=== PATIENT | female | born 1990 | race Caucasian/White ===

== ENCOUNTER 2017-08-20 16:25 | Emergency (ER) | payer OTHER ==
--- NOTE | 2017-08-20 16:46 | PDOC ---
Rapid Medical Evaluation Time Seen by Provider: 08/20/17 16:45 Medical Evaluation: Allergies Allergy/AdvReac Type Severity Reaction Status Date / Time No Known Allergies Allergy Verified 08/20/17 16:45 08/20/17 16:45 pt states IDDM and 7 weeks sent by for admission for uncontrolled blood sugar. Pt states her blood sugar has been over 400.
[2017-08-20 16:48] VITALS: BP 137/89; PULSE 109; TEMP 98.6; BMI 28.0
[2017-08-20 17:37] LABS: HEMATOCRIT 36.8 % (32.4-45.2); HEMOGLOBIN 12.7 GM/dL (10.7-15.3); MCH 29.9 pg (25.7-33.7); MCHC 34.5 g/dl (32.0-36.0); MEAN CELL VOLUME 86.7 fl (80-96); MEAN PLT VOLUME 9.5 fl (7.5-11.1); PLATELET COUNT 301 K/MM3 (134-434); RBC 4.24 M/mm3 (3.60-5.2); RDW 12.5 % (11.6-15.6); WHITE BLOOD COUNT 9.9 K/mm3 (4.0-10.0)
[2017-08-20 17:53] LABS: ARTERIAL BLD GAS O2 SATURATION 98.5 % (90-98.9); ARTERIAL BLOOD GAS BASE EXCESS -1.5 meq/l (-2-2); ARTERIAL BLOOD GAS PCO2 31.3 mmHg (35-45); ARTERIAL BLOOD GAS pH 7.45 (7.35-7.45); CARBOXYHEMOGLOBIN 1.3 gm% (0.5-2.0)
[2017-08-20 18:04] LABS: ALLENS TEST POSITIVE
[2017-08-20 18:17] LABS: ANION GAP 12 (8-16); BLOOD UREA NITROGEN 11 mg/dL (7-18); CALCIUM 9.2 mg/dL (8.5-10.1); CHLORIDE 102 mmol/L (98-107); CO2 23 mmol/L (21-32); CREATININE 0.6 mg/dL (0.55-1.02); GLUCOSE,RANDOM 271 mg/dL (74-106); SGOT/AST 24 U/L (15-37); SGPT/ALT 70 U/L (12-78); SODIUM 137 mmol/L (136-145)
[2017-08-20 18:19] LABS: ALK PHOS 80 U/L (45-117); BILIRUBIN,TOTAL 0.4 mg/dL (0.2-1.0); TOT PROT 7.9 g/dl (6.4-8.2)
[2017-08-20 20:20] LABS: URINE APPEARANCE CLEAR; URINE BILIRUBIN NEGATIVE (NEGATIVE); URINE BLOOD 3+ (NEGATIVE); URINE COLOR YELLOW; URINE GLUCOSE (UA) 3+ (NEGATIVE); URINE KETONE TRACE (NEGATIVE); URINE LEUK ESTERASE NEGATIVE (NEGATIVE); URINE NITRITE NEGATIVE (NEGATIVE); URINE PROTEIN NEGATIVE (NEGATIVE); URINE UROBILINOGEN NEGATIVE mg/dL (0.2-1.0)
--- NOTE | 2017-08-20 21:03 | PDOC ---
History of Present Illness - General History Source: Patient Exam Limitations: No Limitations - History of Present Illness Initial Comments: 08/20/17 21:21 The patient is a 26 year old female who is 7 weeks and a significant PMH of type 2 diabetes, HTN, and 2 spontaneous abortions sent in by Dr. Estrada who presents to the emergency department for evaluation of high blood sugar. The patient reports her blood sugar was over 400 recently and has been high for a few months, and was told by Dr. Estrada to present to the ED for evaluation. The patient reports she stopped taking her HTN and diabetes medications on 08/04/2017. She reports seeing Dr. Estrada yesterday and receiving new medications which she has been compliant with. The patient also notes a mild headache and dizziness beginning yesterday and a pinkish vaginal discharge beginning today. The patient denies chest pain, shortness of breath. Denies fever, chills, nausea, vomit, diarrhea and constipation. Denies dysuria, frequency, urgency. Allergies: NKA Past surgical history: None reported. Social history: No reported cigarette, alcohol, or drug use. PCP: Dr. Pollock Endocrinology: Dr. Estrada <Diony Pickett - Last Filed: 08/20/17 21:21> - General History Source: Patient <ZhaneArnulfo shine - Last Filed: 08/20/17 23:54> - General Chief Complaint: Blood Sugar Problem Stated Complaint: BLOOD SUGAR PROBLEM/7 WKS Time Seen by Provider: 08/20/17 16:45 Past History <Diony Pickett - Last Filed: 08/20/17 21:21> - Past Medical History COPD: No Diabetes: Yes - Suicide/Smoking/Psychosocial Hx Smoking History: Never smoked <Arnulfo Cartwright - Last Filed: 08/20/17 23:54> - Past Medical History Allergies/Adverse Reactions: Allergies Allergy/AdvReac Type Severity Reaction Status Date / Time No Known Allergies Allergy Verified 08/20/17 16:45 Review of Systems - Review of Systems Able to Perform ROS?: Yes Comments:: 08/20/17 21:21 CONSTITUTIONAL: Absent: fever, chills, diaphoresis, generalized weakness, malaise, loss of appetite HEENT: Absent: rhinorrhea, nasal congestion, throat pain, throat swelling, difficulty swallowing, mouth swelling, ear pain, eye pain, visual Changes CARDIOVASCULAR: Absent: chest pain, syncope, palpitations, irregular heart rate, lightheadedness , peripheral edema RESPIRATORY: Absent: cough, shortness of breath, dyspnea with exertion, orthopnea, wheezing, stridor, hemoptysis GASTROINTESTINAL: Absent: abdominal pain, abdominal distension, nausea, vomiting, diarrhea, constipation, melena, hematochezia GENITOURINARY: (+) [place] vaginal discharge. Absent: dysuria, frequency, urgency, hesitancy, flank pain, genital pain MUSCULOSKELETAL: Absent: myalgia, arthralgia, joint swelling SKIN: Absent: rash, itching, pallor HEMATOLOGIC/IMMUNOLOGIC: Absent: easy bleeding, easy bruising, lymphadenopathy, frequent infections ENDOCRINE: (+) High blood sugar. Absent: unexplained weight gain, unexplained weight loss, heat intolerance, cold intolerance NEUROLOGIC: (+) Mild headache. (+) Dizziness. Absent: focal weakness or paresthesias, unsteady gait, seizure, mental status changes, bladder or bowel incontinence PSYCHIATRIC: Absent: anxiety, depression, suicidal or homicidal ideation, hallucinations. <Diony Pickett - Last Filed: 08/20/17 21:21> *Physical Exam - Vital Signs Last Vital Signs Temp Pulse Resp BP Pulse Ox 98.6 F 109 H 19 137/89 98 08/20/17 16:45 08/20/17 16:45 08/20/17 16:45 08/20/17 16:45 08/20/17 16:45 - Physical Exam Comments: 08/20/17 21:21 GENERAL: Well developed, well nourished. Awake and alert. No acute distress. HEENT: Normocephalic, atraumatic. PERRLA, EOMI. No conjunctival pallor. Sclera are non- icteric. Moist mucous membranes. Oropharynx is clear. NECK: Supple. Full ROM. No JVD. Carotid pulses 2+ and symmetric, without bruits. No thyromegaly. No lymphadenopathy. CARDIOVASCULAR: Regular rate and rhythm. No murmurs, rubs, or gallops. Distal pulses are 2+ and symmetric. PULMONARY: No evidence of respiratory distress. Lungs clear to auscultation bilaterally. No wheezing, rales or rhonchi. ABDOMINAL: Soft. Non-tender. Non-distended. No rebound or guarding. No organomegaly. Normoactive bowel sounds. MUSCULOSKELETAL Normal range of motion at all joints. No bony deformities or tenderness. No CVA tenderness. EXTREMITIES: No cyanosis. No clubbing. No edema. No calf tenderness. SKIN: Warm and dry. Normal capillary refill. No rashes. No jaundice. NEUROLOGICAL: Alert, awake, appropriate. Cranial nerves 2-12 intact. No deficits to light touch and temperature in face, upper extremities and lower extremities. No motor deficits in the in face, upper extremities and lower extremities. Normoreflexic in the upper and lower extremities. Normal speech. Toes are downgoing bilaterally. Gait is normal without ataxia. PSYCHIATRIC: Cooperative. Good eye contact. Appropriate mood and affect. <Diony Pickett - Last Filed: 08/20/17 21:21> - Vital Signs Last Vital Signs Temp Pulse Resp BP Pulse Ox 98.6 F 109 H 19 137/89 98 08/20/17 16:45 08/20/17 16:45 08/20/17 16:45 08/20/17 16:45 08/20/17 16:45 <Arnulfo Cartwright - Last Filed: 08/20/17 23:54> ED Treatment Course - LABORATORY CBC & Chemistry Diagram: 08/20/17 17:25 08/20/17 17:25 - ADDITIONAL ORDERS Additional order review: Laboratory Results 08/20/17 08/20/17 08/20/17 20:40 17:30 17:25 Anticoagulation Therapy No Result Required. Puncture Site Right radial ABG pH 7.45 ABG pCO2 at Pt Temp 31.3 L ABG pO2 at Pt Temp 105.0 H ABG HCO3 21.3 L ABG O2 Sat (Measured) 98.5 ABG O2 Content 16.9 ABG Base Excess -1.5 Bar Test Positive Carboxyhemoglobin 1.3 Methemoglobin 1.1 O2 Delivery Device No Result Required. Oxygen Flow Rate Room air Vent Mode No Result Required. Vent Rate No Result Required. Mechanical Rate No Result Required. Pressure Support Vent No Result Required. Sodium Potassium Chloride Carbon Dioxide Anion Gap BUN Creatinine Creat Clearance w eGFR Random Glucose Calcium Total Bilirubin AST ALT Alkaline Phosphatase Total Protein Albumin Beta HCG, Quant 1372.2 Urine Color Yellow Urine Appearance Clear Urine pH 5.0 Ur Specific Archer 1.035 Urine Protein Negative Urine Glucose (UA) 3+ H Urine Ketones Trace H Urine Blood 3+ H Urine Nitrite Negative Urine Bilirubin Negative Urine Urobilinogen Negative Ur Leukocyte Esterase Negative 08/20/17 17:25 Anticoagulation Therapy Puncture Site ABG pH ABG pCO2 at Pt Temp ABG pO2 at Pt Temp ABG HCO3 ABG O2 Sat (Measured) ABG O2 Content ABG Base Excess Bar Test Carboxyhemoglobin Methemoglobin O2 Delivery Device Oxygen Flow Rate Vent Mode Vent Rate Mechanical Rate Pressure Support Vent Sodium 137 Potassium 4.0 Chloride 102 Carbon Dioxide 23 Anion Gap 12 BUN 11 Creatinine 0.6 Creat Clearance w eGFR > 60 Random Glucose 271 H Calcium 9.2 Total Bilirubin 0.4 AST 24 ALT 70 Alkaline Phosphatase 80 Total Protein 7.9 Albumin 4.0 Beta HCG, Quant Urine Color Urine Appearance Urine pH Ur Specific Archer Urine Protein Urine Glucose (UA) Urine Ketones Urine Blood Urine Nitrite Urine Bilirubin Urine Urobilinogen Ur Leukocyte Esterase 08/20/17 17:25 RBC 4.24 MCV 86.7 MCHC 34.5 RDW 12.5 MPV 9.5 <Diony Pickett - Last Filed: 08/20/17 21:21> - LABORATORY CBC & Chemistry Diagram: 08/20/17 17:25 08/20/17 17:25 - ADDITIONAL ORDERS Additional order review: Laboratory Results 08/20/17 08/20/17 08/20/17 20:40 17:30 17:25 Anticoagulation Therapy No Result Required. Puncture Site Right radial ABG pH 7.45 ABG pCO2 at Pt Temp 31.3 L ABG pO2 at Pt Temp 105.0 H ABG HCO3 21.3 L ABG O2 Sat (Measured) 98.5 ABG O2 Content 16.9 ABG Base Excess -1.5 Bar Test Positive Carboxyhemoglobin 1.3 Methemoglobin 1.1 O2 Delivery Device No Result Required. Oxygen Flow Rate Room air Vent Mode No Result Required. Vent Rate No Result Required. Mechanical Rate No Result Required. Pressure Support Vent No Result Required. Sodium Potassium Chloride Carbon Dioxide Anion Gap BUN Creatinine Creat Clearance w eGFR Random Glucose Calcium Total Bilirubin AST ALT Alkaline Phosphatase Total Protein Albumin Beta HCG, Quant 1372.2 Urine Color Yellow Urine Appearance Clear Urine pH 5.0 Ur Specific Archer 1.035 Urine Protein Negative Urine Glucose (UA) 3+ H Urine Ketones Trace H Urine Blood 3+ H Urine Nitrite Negative Urine Bilirubin Negative Urine Urobilinogen Negative Ur Leukocyte Esterase Negative 08/20/17 17:25 Anticoagulation Therapy Puncture Site ABG pH ABG pCO2 at Pt Temp ABG pO2 at Pt Temp ABG HCO3 ABG O2 Sat (Measured) ABG O2 Content ABG Base Excess Bar Test Carboxyhemoglobin Methemoglobin O2 Delivery Device Oxygen Flow Rate Vent Mode Vent Rate Mechanical Rate Pressure Support Vent Sodium 137 Potassium 4.0 Chloride 102 Carbon Dioxide 23 Anion Gap 12 BUN 11 Creatinine 0.6 Creat Clearance w eGFR > 60 Random Glucose 271 H Calcium 9.2 Total Bilirubin 0.4 AST 24 ALT 70 Alkaline Phosphatase 80 Total Protein 7.9 Albumin 4.0 Beta HCG, Quant Urine Color Urine Appearance Urine pH Ur Specific Archer Urine Protein Urine Glucose (UA) Urine Ketones Urine Blood Urine Nitrite Urine Bilirubin Urine Urobilinogen Ur Leukocyte Esterase 08/20/17 17:25 RBC 4.24 MCV 86.7 MCHC 34.5 RDW 12.5 MPV 9.5 <Arnulfo Cartwright - Last Filed: 08/20/17 23:54> Medical Decision Making - Medical Decision Making 08/20/17 23:47 Dr. Cartwright: The scribe's documentation has been prepared under my direction and personally reviewed by me in its entirery. I confirm that the note above accurately reflects all work, treatment, procedures, and medical decision making performed by me. Pt found to have an approximately 5 weeks 1 day gestation. No yolk sac or pole. Pt advised to follow up with Dr. Wadsworth to have bHCG repeated as well as her US in the next two days. <Arnulfo Cartwright - Last Filed: 08/20/17 23:54> *DC/Admit/Observation/Transfer - Attestations Scribe Attestion: 08/20/17 21:21 Documentation prepared by Diony Pickett, acting as medical dosimetrist for Arnulfo Cartwright DO. <Diony Pickett - Last Filed: 08/20/17 21:21> - Discharge Dispostion Admit: No <Arnulfo Cartwright - Last Filed: 08/20/17 23:54> Diagnosis at time of Disposition: Diabetes Qualifiers: Diabetes mellitus type: type 2 - Discharge Dispostion Disposition: HOME Condition at time of disposition: Stable - Referrals Referrals: Radha Nina MD [Primary Care Provider] - Bhaskar Gibson MD [Staff Physician] - - Patient Instructions Printed Discharge Instructions: Type 2 Diabetes, DI for Abdominal Pain -- Early Additional Instructions: Please follow up with your Animal Anatomist for repeat of hormone and Ultrasound. Keep sugars control as well as possible. Follow up with you nursery worker as well. Return if any problems. - Post Discharge Activity
[2017-08-20] MEDS ORDERED: SODIUM CHLORIDE 1,000 ML IV STA (21:10)
[2017-08-20 21:48] LABS: EPI CELLS RARE /HPF (FEW); URINE HYALINE CAST 2 /lpf; URINE MUCUS FEW
== END 2017-08-21 00:05 | disposition home or self-care (01) ==
LOC: JER 16:25
PROC: 3E0337Z Introduction of Electrolytic and Water Balance Substance into Peripheral Vein, Percutaneous Approach (ICD-10-PCS; principal; 2017-08-20)
DX: O24.111 Pre-existing type 2 diabetes mellitus, in pregnancy, first trimester (principal); E11.9 Type 2 diabetes mellitus without complications; Z79.84 Long term (current) use of oral hypoglycemic drugs; O10.011 Pre-existing essential hypertension complicating pregnancy, first trimester; Z3A.01 Less than 8 weeks gestation of pregnancy
CPT/HCPCS: 36415; 36600; 76817-TC; 80053; 81003; 81015; 82375; 82803; 83050; 84702; 85027; 99281-25

== ENCOUNTER 2017-09-08 04:13 | Day surgery (SDC) | payer OTHER ==
[2017-09-07 10:03] VITALS: BMI 28.7
[2017-09-08] MEDS ORDERED: PROPOFOL 20 ML ONE ×3 (10:22→10:40)
[2017-09-08] MEDS ORDERED: MIDAZOLAM HCL 2 MG/2 ML SINGLE DOSE VIAL ONE ×2 (10:22→10:40)
--- NOTE | 2017-09-08 10:37 | HP ---
Past Medical History - Primary Care Physician PCP:: Bhaskar Gibson - Admission Chief Complaint: vaginal bleeding, incomplete History of Present Illness: 26 yo f g 3 p0 with spontaneous , has vaginal bleeding ,sono shows thicken irregular EM , with retained POC admitted for D&C, rba discussed History Source: Patient Limitations to Obtaining History: No Limitations - Past Medical History Cardiovascular: Yes: HTN ...Induced : 2 Endocrine: Yes: Diabetes Mellitus (on insulin pump) - Smoking History Smoking history: Never smoked - Alcohol/Substance Use Hx Alcohol Use: No Home Medications - Allergies Allergies/Adverse Reactions: Allergies Allergy/AdvReac Type Severity Reaction Status Date / Time No Known Allergies Allergy Verified 09/08/17 09:57 - Home Medications Home Medications: Ambulatory Orders Cider Vinegar [Apple Cider Vinegar] 500 mg PO DAILY 09/07/17 Ginkgo Biloba 120 mg PO DAILY 09/07/17 Ibuprofen [Motrin -] 400 mg PO TID 09/07/17 Insulin Pump Controller [Snap Insulin Pump Controller] 1 each MC DAILY 09/07/17 Labetalol HCl [Normodyne -] 200 mg PO BID 09/07/17 Mv-Mn/Folic AC/Alip Acid/Coq10 [Diabetic Vitamin Capsule] 1 each PO DAILY Review of Systems - Review of Systems Constitutional: reports: Weakness Eyes: reports: No Symptoms HENT: reports: No Symptoms Neck: reports: No Symptoms Cardiovascular: reports: No Symptoms Respiratory: reports: No Symptoms Gastrointestinal: reports: No Symptoms Genitourinary: reports: Vaginal Bleeding Musculoskeletal: reports: No Symptoms Integumentary: reports: No Symptoms Neurological: reports: No Symptoms Endocrine: reports: No Symptoms Hematology/Lymphatic: reports: No Symptoms Psychiatric: reports: No Symptoms Physical Exam-CARBON ACCOUNTANT Vital Signs: Vital Signs Temperature 99.0 F 09/08/17 09:56 Pulse Rate 100 H 09/08/17 09:56 Respiratory Rate 20 09/08/17 09:56 Blood Pressure 132/84 09/08/17 09:56 O2 Sat by Pulse Oximetry (%) 98 09/08/17 09:50 Constitutional: Yes: Well Nourished, No Distress, Calm Eyes: Yes: WNL, Conjunctiva Clear, EOM Intact HENT: Yes: WNL, Atraumatic, Normocephalic Neck: Yes: WNL, Supple, Trachea Midline Cardiovascular: Yes: WNL, Regular Rate and Rhythm Respiratory: Yes: WNL, Regular, CTA Bilaterally Gastrointestinal: Yes: WNL ...Rectal Exam: Yes: WNL Renal/: Yes: WNL Pelvis: Yes: WNL External Genitalia: Yes: Normal Vaginal Exam: Yes: Bleeding Cervix: Yes: Other (bleeding from os , os closed) Uterus: Yes: Normal (tender), Soft Adnexa: Not Palpable: Left, Right Breast(s): Yes: WNL Musculoskeletal: Yes: WNL Extremities: Yes: WNL Edema: No Integumentary: Yes: WNL Neurological: Yes: WNL, Alert, Oriented ...Motor Strength: WNL Psychiatric: Yes: WNL, Alert, Oriented Problem List - Problem (1) Incomplete Code(s): O03.4 - INCOMPLETE SPONTANEOUS WITHOUT COMPLICATION Assessment/Plan suction D&C , rba discussed
[2017-09-08] MEDS ORDERED: KETOROLAC TROMETHAMINE 30 MG/1 ML VIAL ONE (10:42)
[2017-09-08] MEDS ORDERED: ceFAZolin SODIUM 1 GM VIAL IVPB ONE (10:47)
[2017-09-08] MEDS ORDERED: ceFAZolin SODIUM 1 GM VIAL ONE (10:49)
[2017-09-08] MEDS ORDERED: ONDANSETRON 4 MG/2 ML VIAL IVPUSH PRN ×2 (11:04→11:27)
[2017-09-08] MEDS ORDERED: oxyCODONE HCL 5 MG TABLET PO PRN ×2 (11:04→11:27)
[2017-09-08] MEDS ORDERED: SODIUM CHLORIDE 1,000 ML IV SCH (11:15)
[2017-09-08] MEDS ORDERED: IBUPROFEN 800 MG/8 ML IJ IVPB PRN (11:27)
[2017-09-08] MEDS ORDERED: IBUPROFEN 600 MG TABLET (FP) PO PRN (11:27)
[2017-09-08] MEDS ORDERED: ELECTROLYTE-148 SOLN 1,000 ML IV SCH (11:30)
--- NOTE | 2017-09-08 13:25 | EKG ---
Test Reason : Blood Pressure : / mmHG Vent. Rate : 099 BPM Atrial Rate : 099 BPM P-R Int : 144 ms QRS Dur : 080 ms QT Int : 358 ms P-R-T Axes : 021 074 030 degrees QTc Int : 459 ms NORMAL SINUS RHYTHM NORMAL ECG NO PREVIOUS ECGS AVAILABLE Confirmed by Colin Hodge ([id number]) on 09/08/2017 1:25:19 PM Referred By: Bhaskar Gibson Confirmed By:Colin Hodge
--- NOTE | 2017-09-08 13:45 | OP ---
DATE OF OPERATION: 09/08/2017 PREOPERATIVE DIAGNOSIS: Incomplete . POSTOPERATIVE DIAGNOSIS: Incomplete . PROCEDURE: Suction curettage. SURGEON: Bhaskar Gibson MD ANESTHESIA: General. ANESTHESIOLOGIST: Esperanza Crespo MD ESTIMATED BLOOD LOSS: 50 mL DESCRIPTION OF OPERATIVE PROCEDURE: Patient was taken to the operating room. Under adequate general anesthesia in dorsal lithotomy position, examination under anesthesia revealed the external genitalia to be normal. Vagina had some blood in the vagina. Cervix was closed and bleeding from the os. Uterus was prominent and soft, retroverted. Adnexa: No masses were palpable. Then, with the weighted speculum in the vagina, anterior lip of the cervix was grasped with a single-tooth tenaculum. Uterine cavity was sounded to 9 cm. Then, cervix was dilated, did not require any dilation. Then, a suction curette was inserted into the uterine cavity, and the contents were suctioned. Patient tolerated the procedure well, left the OR in good condition. Hernandez [id number]
[2017-09-08] MEDS ORDERED: IBUPROFEN 400 MG TABLET (FP) PO SCH (14:00)
[2017-09-08 15:52] VITALS: BP 121/79
[2017-09-08 16:00] VITALS: PULSE 100; TEMP 97.8
[2017-09-08] MEDS ORDERED: LABETALOL HCL 200 MG TABLET (FP) PO SCH (22:00)
[2017-09-09] MEDS ORDERED: CIDER VINEGAR 500 MG PO SCH (10:00)
[2017-09-09] MEDS ORDERED: FOLIC AC PO SCH (10:00)
[2017-09-09] MEDS ORDERED: [UNRECOGNIZED DRUG - OTHER] PO SCH (10:00)
[2017-09-09] MEDS ORDERED: MV MN PO SCH (10:00)
[2017-09-09] MEDS ORDERED: GINKGO BILOBA 120 MG PO SCH (10:00)
[2017-09-09] MEDS ORDERED: PATIENT'S OWN MEDICATION (NON-FORMULARY) (Insulin Pump Controller [Snap Insulin Pump Contr MC SCH (10:00)
[2017-09-09] MEDS ORDERED: COQ10 PO SCH (10:00)
--- NOTE | 2017-09-09 14:52 | PATH ---
Surgical Pathology Report Patient Name: ROSIE BEAVERS [facility]. Rec. #: [id number] /Age/Gender: 1990 (Age: 26) / F Account: [id number] Location: [facility] SURGICAL Taken: 09/08/2017 Received: 09/08/2017 Reported: 09/09/2017 Physicians: Bhaskar Gibson M.D. Specimen(s) Received CONTENTS OF UTERUS Clinical History Incomplete Final Diagnosis CONTENTS OF UTERUS, SUCTION DILATATION AND CURETTAGE: IMMATURE CHORIONIC VILLI, DECIDUA, AND GESTATIONAL ENDOMETRIUM CONSISTENT WITH PRODUCTS OF CONCEPTION. Electronically Signed Shelbi Sandoval M.D. Gross Description Received in formalin labeled "contents of uterus," is a 6.5 x 5.0 x 0.4 cm aggregate of bustillo red soft tissue fragments. No definite villous tissue or somatic tissue is identified. Computer Systems Information Director sections are submitted in 3 cassettes. /09/08/2017 saudi/09/08/2017
== END 2017-09-08 15:00 | disposition home or self-care (01) ==
LOC: JASU-SURG 04:13
PROVIDERS: ATTEND Obstetrics & Gynecology
PROC: 10D17ZZ Extraction of Products of Conception, Retained, Via Natural or Artificial Opening (ICD-10-PCS; principal; 2017-09-08 10:00)
DX: O03.4 Incomplete spontaneous abortion without complication (principal); E11.9 Type 2 diabetes mellitus without complications; I10 Essential (primary) hypertension; E66.9 Obesity, unspecified
CPT/HCPCS: 82962; 86850; 86900; 86901; 88305-TC; 93005; 93010; 94760